=== PATIENT | male | born 1990 | race Caucasian/White ===

== ENCOUNTER 2017-08-16 07:36 | Emergency (ER) | payer BC, OTHER ==
[~2017-08-16] VITALS: Ht 182.9 cm; Wt 68.0 kg
[~2017-08-16 07:36] MED LIST: ADVA250A INH; ALBU17I INH; PRED20 PO; PRED50TA PO
[2017-08-16 07:38] VITALS: BP 131/72; PULSE 93; RESP 20; TEMP 98.6; O2SAT 93
[2017-08-16] MEDS ORDERED: ALBU6.7H INH (07:50)
[2017-08-16] MEDS ORDERED: ADVA250A INH (07:50)
[2017-08-16] MEDS ORDERED: ALBU.5I NEB (07:53)
[2017-08-16] MEDS ORDERED: PRED20 PO (07:56)
--- NOTE | 2017-08-16 07:56 | PD ---
HPI Chief Complaint: Respiratory Symptoms Time Seen by Provider: 07:50 Travel History International Travel<30 days: No Contact w/Intl Traveler<30days: No Traveled to known affect area: No History of Present Illness HPI 26-year-old male reports shortness of breath for the last day and a half or so. He has asthma and used his nebulizer twice today. He uses rescue inhaler multiple times hourly over the past 12-24 hours. He denies chest pain. Dyspnea is worse with exertion. Possible subjective fever is reported. Cough is reported. He reports a similar process occurs nearly annually which he he believes is due to asthma. [facility] Past Medical History Asthma: Yes Diminished Hearing: Yes (BILATERAL) Past Surgical History Eye Surgery: Yes (SCRAPED CALCIUM DEPOSITS OFF EYE, CATARACT SX) Oral Surgery: Yes (WISDOM TEETH) Social History Alcohol Use: Yes (WEEKENDS) Tobacco Use: Yes (1 PPD) Substance Use: Yes (MARIJUANNA 3X/WEEK) Allergies-Medications (Allergen,Severity, Reaction): Coded Allergies: No Known Allergies (Verified Adverse Reaction, Unknown, 08/16/17) Reported Meds & Prescriptions Reported Meds & Active Scripts Active Prednisone 20 Mg Tab 40 Mg PO DAILY 4 Days Take 40 mg (2 tablets) daily for 5 days Reported Albuterol Neb (Albuterol Sulfate) 2.5 Mg/0.5 Ml Neb 2.5 Mg NEB Q4HR NEB PRN Note: The Albuterol Sulfate Inhalation Solution is concentrated and must be diluted. Read complete instructions carefully before using. Advair Diskus Inh (Fluticasone-Salmeterol Inh) 250-50 Mcg/Blist Aer 1 Puff INH BID Rinse mouth after use. Proventil Hfa 6.7 GM Inh (Albuterol Sulfate) 90 Mcg/Act Aer 2 Puff INH Q4-6H PRN Review of Systems Except as stated in HPI: all other systems reviewed are Neg Physical Exam Narrative GENERAL: 6-year-old male well-nourished well-developed pleasant SKIN: Focused skin assessment warm/dry. HEAD: Atraumatic. Normocephalic. EYES: Pupils equal and round. No scleral icterus. No injection or drainage. ENT: No nasal bleeding or discharge. Mucous membranes pink and moist. NECK: Trachea midline. No JVD. CARDIOVASCULAR: Rate is approximately 90. Rhythm is regular. RESPIRATORY: Minimal tachypnea with a rate of about 20 breaths per minute. There are some coarse breath sounds at the base on the left side. GASTROINTESTINAL: Abdomen soft, non-tender, nondistended. Hepatic and splenic margins not palpable. MUSCULOSKELETAL: No obvious deformities. No clubbing. No cyanosis. No edema. NEUROLOGICAL: Awake and alert. No obvious cranial nerve deficits. Motor grossly within normal limits. Normal speech. PSYCHIATRIC: Appropriate mood and affect; insight and judgment normal. Data Data Last Documented VS Vital Signs Date Time Temp Pulse Resp B/P (MAP) Pulse Ox O2 Delivery O2 Flow Rate FiO2 08/16/17 08:00 95 Nasal Cannula 2.00 08/16/17 07:59 18 08/16/17 07:38 98.6 93 Orders Orders Iv Access Insert/Monitor (08/16/17 07:52) Ecg Monitoring (08/16/17 07:52) Oximetry (08/16/17 07:52) Oxygen Administration (08/16/17 07:52) Chest, Single Ap (08/16/17 07:52) Sodium Chloride 0.9% Flush (Ns Flush) (08/16/17 08:00) Methylprednisolone So Succ Inj (Solumedr (08/16/17 08:00) Albuterol-Ipratropium Neb (Duoneb Neb) (08/16/17 08:00) Sodium Chlor 0.9% 1000 Ml Inj (Ns 1000 M (08/16/17 08:00) Ed Discharge Order (08/16/17 09:18) MDM Medical Decision Making Medical Screen Exam Complete: Yes Emergency Medical Condition: Yes Medical Record Reviewed: Yes Differential Diagnosis Pneumothorax, PE, pneumonia, anemia Narrative Course Last Impressions Chest X-Ray 08/16/17 4535 Signed Impressions: Service Date/Time: Wednesday, August 16, 2017 08:29 - CONCLUSION: No acute disease. Derrick Alonso MD Presentation considered most likely keeping with acute asthma exacerbation and the patient home with prednisone. Pt has Rescue inhaler. Diagnosis Primary Impression: Asthma exacerbation Med/Other Pt SpecificInfo: Prescription(s) given Scripts Prednisone (Prednisone) 20 Mg Tab 40 MG PO DAILY for 4 Days, #8 TAB 0 Refills Take 40 mg (2 tablets) daily for 5 days Prov: Kelby Alvarenga MD 08/16/17 Disposition: 01 DISCHARGE HOME Condition: Stable Kelby Alvarenga MD Aug 16, 2017 07:56
[2017-08-16 07:59] VITALS: RESP 18; O2SAT 94
[2017-08-16 08:00] VITALS: O2SAT 95
[2017-08-16] MEDS ORDERED: SODIUM CHLOR 0.9% 1000 ML INJ 1,000 ML IV ONE (08:00)
[2017-08-16] MEDS ORDERED: SODIUM CHLORIDE 0.9% FLUSH 10 ML FLUSH IVF PRN (08:00)
[2017-08-16] MEDS ORDERED: methylPREDNISolone SOD SUCC 125 MG/2 ML VIAL IV PUSH ONE (08:00)
[2017-08-16] MEDS: RESP: ALBUTEROL 2.5 MG/IPRATROPIUM 0.5 MG NEB (SCH) INH ×2 (08:24→08:25)
--- NOTE | 2017-08-16 08:41 | RADRPT ---
EXAM DATE/TIME: 08/16/2017 08:29 [facility] COMPARISON: No previous studies available for comparison. INDICATIONS : Shortness of breath, chest pain. MEDICAL HISTORY : Asthma. Smoker. SURGICAL HISTORY : None. ENCOUNTER: Initial ACUITY: 2 days PAIN SCORE: 2/10 LOCATION: chest midline. FINDINGS: A single view of the chest demonstrates the lungs to be symmetrically aerated without evidence of mas s, infiltrate or effusion. The cardiomediastinal contours are unremarkable. Osseous structures are intact. CONCLUSION: No acute disease. Derrick Alonso MD on August 16, 2017 at 8:39 Board Certified Radiologist. This report was verified electronically.
== END 2017-08-16 09:40 | disposition home or self-care (01) ==
LOC: NEPC 07:36
DX: J45.901 Unspecified asthma with (acute) exacerbation (principal); F17.200 Nicotine dependence, unspecified, uncomplicated; Z79.51 Long term (current) use of inhaled steroids
CPT/HCPCS: 71010; 94640; 94664; 96374; 99284; J2930; J7030